=== PATIENT | female | born 2005 | race African-American/Black ===

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

== ENCOUNTER 2025-04-22 07:35 | Emergency (ER) | payer OTHER ==
[2025-04-22 07:41] VITALS: BP 126/90; PULSE 100; RESP 20; TEMP 98.1; BMI 19.4
[2025-04-22] MEDS ORDERED: MAG HYDROX/ALH/SMC/DPHA/LIDO 240 ML MOUTHWASH MM ONE (07:51)
[2025-04-22] MEDS ORDERED: ACETAMINOPHEN 500 MG TABLET (FP) ONE (08:06)
[2025-04-22] MEDS ORDERED: AMOX TR/POT CLAV 875MG/125MG TABLETS (FP) ONE (08:06)
[2025-04-22] MEDS: AMOX TR/POT CLAV 875MG/125MG TABLETS (FP) PO ONE (08:25)
[2025-04-22] MEDS: ACETAMINOPHEN 500 MG TABLET (FP) PO ONE (08:25)
[2025-04-22 10:00] LABS: HCV DIAGNOSTIC IN-HOUSE W/RFLX NON-REACTIVE (NONREACTIVE); HIV INTERPRETATION NEGATIVE (NEGATIVE)
== END 2025-04-22 08:30 | disposition home or self-care (01) ==
LOC: JER 07:35 → JERFT 07:35
DX: J02.0 Streptococcal pharyngitis (principal); R13.10 Dysphagia, unspecified; R59.0 Localized enlarged lymph nodes
CPT/HCPCS: 36415; 86803; 87389; 87651; 99283-25